=== PATIENT | female | born 2000 | race Caucasian/White ===

== ENCOUNTER 2023-04-15 18:52 | Emergency (ER) | payer BC, SELFPAY ==
[2023-04-15 19:09] VITALS: BP 108/73; PULSE 78; RESP 16; TEMP 36.2; O2SAT 98; BMI 21.1
[2023-04-15 20:13] LABS: Appearance Urine Clear (Clear); Bilirubin Urine Negative (Negative); Blood Urine Trace-intact (Negative); Color Urine Yellow (Yellow); Glucose Urine Negative (Negative); Ketones Urine Negative (Negative); Leukocyte Esterase Urine Negative (Negative); Nitrite Urine Negative (Negative); Protein Urine Negative (Negative); Specific Gravity Urine 1.015 (1.000-1.030); Urobilinogen Urine 0.2 (0.2-1.0)
--- NOTE | 2023-04-15 20:15 | ED.GENADULT ---
HPI - General Adult General Chief complaint: Vaginal Bleeding Stated complaint: Possible UTI Time Seen by Provider: 04/15/23 19:56 Source: patient Mode of arrival: ambulatory Limitations: no limitations History of Present Illness HPI narrative: 23-year-old female presents the emergency department with an worse menstrual cramps than usual, no trauma or injury. He mild low back ache, lower uterine cramping in conjunction with starting her period yesterday. She brings in her sugars of a tampon that she removed and it has tissue attached that she is concerned could be a miscarriage. She shows me a picture and it is very typical looking decidual tissue. She takes an oral contraceptive but did miss a few days, as the pharmacy was out of the product. She is at risk of . On her menses did come on time. There is no fever, no symptoms of infection, no dysuria. No nausea or vomiting, no diarrhea, no other abnormal discharge or abdominal symptoms. She has not tried taking any Tylenol, ibuprofen or other medications to help with her symptoms. She reports that she came to the emergency department because ?this is not a normal period for me?. She has an upcoming appointment with her Ob provider in 2 days. Past medical history she reports is benign, no major long-term health problems. Her only long-term medication is an oral contraception. No known drug allergies. ROS notable for the gynecological symptoms as above, otherwise denies times 12 systems. Related Data Home Medications Medication Instructions Recorded Confirmed control 04/15/23 Allergies Allergy/AdvReac Type Severity Reaction Status Date / Time No Known Drug Allergies Allergy Verified 04/15/23 19:16 [facility] Social History Smoking Status: Current every day smoker What tobacco products do you use: cigarettes Smoking packs per day: 0.25 Smoking cigarettes per day: 5.0 Years smoked: 6 Smoking pack-years: 1.50 Do you use any of these nicotine containing products: E-Cigarettes and Vaping Products Second hand tobacco smoke exposure: No How often do you have a drink containing alcohol: never AUDIT-C Alcohol total score: 0 Non-prescribed substance use: marijuana (any form) Exam Const: Vital Signs, click to edit/add: Vital Signs - 24 hr 04/15/23 19:09 Temperature 97.2 F L Pulse Rate [Pulse Oximeter] 78 Respiratory Rate 16 Blood Pressure [Ri ght Upper Arm] 108/73 Pulse Oximetry 98 Oxygen Delivery Me thod Room Air Documenting provider has reviewed patient's vital signs: yes Common normals: no apparent distress General appearance: cooperative, comfortable and well kempt HENMT: Common normals: normocephalic Head and scalp: normocephalic Eye: Common normals: conjunctivae normal General eye: normal appearance of both eyes Conjunctiva: conjunctiva(e) normal Resp: Common normals: normal respiratory effort, no use of accessory muscles and clear to auscultation bilaterally Effort & inspection: able to speak in complete sentences Auscultation: clear to auscultation bilaterally Cardio: Common normals: regular rate, regular rhythm, S1 normal heart sound, S2 normal heart sound and no murmurs Rate: regular rate Rhythm: regular rhythm Heart sounds: S1 normal and S2 normal GI: Common normals: Normal to inspection, nondistended, normoactive bowel sounds present, soft to palpation, non-tender, no hepatosplenomegaly and no masses Palpation: soft and no hepatosplenomegaly : Common normals: no CVA tenderness Bladder/kidney exam: no CVA tenderness Back & Pelvis: Common normals: no CVA tenderness Psych: Common normals: speech normal Appearance: well kempt Attitude: engaged Activity/motor behavior: appropriate eye contact Speech: normal speech Insight: insight good Judgement: judgment good Skin: Common normals: no rashes or lesions noted General skin exam: no rashes or lesions noted Course Course ED Course: Picture that she brings in his reviewed, appears very consistent with typical decidual tissue. There are no red flags for infection, miscarriage. I recommend that we do a urine test and urinalysis. I expect that both of these will be negative. Counseled that if they are, no further workup is needed. It is okay to use Tylenol, ibuprofen and/or Aleve as needed for menstrual cramps. She should keep her follow-up appointment with her Ob provider to further discuss menstrual management if she desires. Continue her control pills exactly as she is taking them. Alarm symptoms reviewed that would warrant ED presentation. Reevaluation(s) Reevaluation #1: Update: test is negative as expected. No further workup recommended. Keep follow-up appointment with Ob provider and continue typical oral contraceptive as prescribed. Vital Signs Vital signs: Initial Vital Signs Temperature 97.2 F L 04/15/23 19:09 Temperature Source Temporal Artery Scan 04/15/23 19:09 Pulse Rate 78 04/15/23 19:09 Respiratory Rate 16 04/15/23 19:09 Blood Pressure 108/73 04/15/23 19:09 Blood Pressure Mean 84 04/15/23 19:09 Blood Pressure Position Sitting 04/15/23 19:09 Pulse Oximetry 98 04/15/23 19:09 Oxygen Delivery Method Room Air 04/15/23 19:09 Vital Signs Temperature 97.2 F L 04/15/23 19:09 Pulse Rate 78 04/15/23 19:09 Respiratory Rate 16 04/15/23 19:09 Blood Pressure 108/73 04/15/23 19:09 Pulse Oximetry 98 04/15/23 19:09 Oxygen Delivery Method Room Air 04/15/23 19:09 Temperature 97.2 F L 04/15/23 19:09 Pulse Rate 78 04/15/23 19:09 Respiratory Rate 16 04/15/23 19:09 Blood Pressure 108/73 04/15/23 19:09 Pulse Oximetry 98 04/15/23 19:09 Oxygen Delivery Method Room Air 04/15/23 19:09 Medical Decision Making Lab Data Lab results reviewed: Yes I reviewed the patient's lab results Lab results narrative: Urinalysis nonsuspicious on menses. test is negative. No severe pain or fevers that would indicate infection. Picture is consistent with typical decidual cast. Vitals are stable. Do not recommend further workup. Labs: Lab Results 04/15/23 Range/Units 20:05 Urine Color Yellow (Yellow) Urine Appearance Clear (Clear) Urine pH 7.0 (5.0-8.5) Ur Specific [address] [place] 1.015 (1.000-1.030) Urine Protein Negative (Negative) Urine Glucose (UA) Negative (Negative) Urine Ketones Negative (Negative) Urine Blood Trace-intact A (Negative) Urine Nitrite Negative (Negative) Urine Bilirubin Negative (Negative) Urine Urobilinogen 0.2 (0.2-1.0) Ur Leukocyte Esterase Negative (Negative) Urine RBC 0-2 (0-2) Urine WBC 0-2 (0-5) Ur Squamous Epith Cells None (None-Few) Urine Bacteria None (None) Discharge Plan Discharge Clinical Impression: Growth of decidual tissue of uterus, Crampy pain associated with menses Patient Disposition: Home, Self-Care Condition: Stable Instructions: Dysmenorrhea (ED) Additional Instructions: As we discussed, the picture that you present is very consistent with decidual tissue. This is commonly shed with the menstrual blood she each month in the uterus. Social often, women get more of this as they age. There are no red flags for infection or complication. He taking her control pills as prescribed. Keep your follow-up appointment with her Ob provider to further discuss your menses. It is okay to use Tylenol and/or ibuprofen as needed for your menstrual cramps. Come back to the emergency department if you are soaking through more than 1 pad per hour consistently for at least a couple of hours, have fevers over 100.4 and or severe pain. You may resume all typical activities. Activity Level: No Restrictions Discharge Diet: Regular Prescriptions: No Action control Stand Alone Forms: [employer] Info Instructions
[2023-04-15 20:34] LABS: RBC Urine 0-2 (0-2); WBC Urine 0-2 (0-5)
[2023-04-15 21:13] LABS: Ur HCG Qualitative* Negative (Negative)
--- NOTE | 2023-04-15 21:18 | PC.NURSE ---
patient DC in no distress, accompanied by friend, no questions about DC
== END 2023-04-15 21:17 | disposition home or self-care (01) ==
LOC: ED 20:25
PROVIDERS: Emergency Provider Family Medicine
DX: N94.6 Dysmenorrhea, unspecified (principal)
CPT/HCPCS: 81001; 81025; 99282; 99283